=== PATIENT | female | born 2000 | race Caucasian/White ===

== ENCOUNTER 2020-05-30 16:19 | Outpatient (REF) | payer OTHER, SELFPAY | END 2020-05-30 16:20 | disposition home or self-care (01) | LOC: HO.LAB 16:19 | PROVIDERS: Visit Provider Internal Medicine | DX: Z20.822 Contact with and (suspected) exposure to COVID-19 (principal) | CPT/HCPCS: 36415; C9803; U0003; U0005 ==

== ENCOUNTER 2021-02-23 00:43 | Emergency (ER) | payer OTHER, SELFPAY ==
[2021-02-23 00:58] VITALS: BP 145/88; PULSE 61; RESP 16; TEMP 36.6; O2SAT 100; BMI 25.8
--- NOTE | 2021-02-23 01:17 | ED_ITS ---
HPI - Extremity Problem General Chief complaint: Extremity Injury, Upper Stated complaint: Hand pain Time Seen by Provider: 02/23/21 01:07 EST Source: patient Mode of arrival: ambulatory Limitations: no limitations History of Present Illness HPI Narrative: 20-year-old female who presents emergency department for evaluation of a painful lump over her left wrist. She states she noticed at approximately 1 week prior and that the lump has gotten bigger and is more painful. She states that if she moves her wrist the lump is painful or she pushes on the lump that is painful. The patient states she uses her hands a lot drained today for her job. 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 She states that she is also in nursing school and does a lot of online work and uses the computer for multiple hours daily. She denied being ill in any other way such as fever, chills, shortness of breath, having numbness or weakness of her extremities. Related Data Allergies Allergy/AdvReac Type Severity Reaction Status Date / Time Penicillins Allergy Itching Verified 02/23/21 01:22 EDT Review of Systems Review of Systems: Yes all other systems are reviewed and are negative [facility] Past Medical History [facility] Narrative: Past medical history: None. Past surgical history: None. Social history: She denies tobacco, alcohol and drug use. Social History Social History Advance Directives: No Patient : No Physical Exam Vital Signs: Vital Signs: Last Vital Signs Temp 97.8 F 02/23/21 00:58 Pulse 61 02/23/21 00:58 Resp 16 02/23/21 00:58 BP 145/88 H 02/23/21 00:58 Pulse Ox 100 02/23/21 00:58 Body Mass Index 25.8 Const: Other: Awake, alert, female patient, very pleasant cooperative in no distress HENMT: Head: Yes normal to inspection Resp: Effort & Inspection: normal respiratory effort Extrem: Other: The patient has a small, tender, mass over the extensor surface of the wrist consistent with a ganglion cyst. Course Course Course Narrative: 20-year-old female who presents emergency department for evaluation of a painful lump on the extensor surface of the left wrist that started 1 week prior. The patient does use her hands a lie in her job and at school since she is in an online nursing class. The patient has a ganglion cyst. The patient was placed in a Velcro wrist splint and this did improve the pain in her wrist. Patient will be referred to the orthopedic surgeons for further evaluation of possible surgical treatment of this ganglion cyst. Discharge Plan Discharge Clinical Impression: Ganglion cyst Patient Disposition: Home, Self-Care Instructions: Ganglion Cysts (ED) Additional Instructions: The lump on the back of your wrist is called a ganglion cyst. This is a common finding and can sometimes be related to overuse of your hands and wrist. Wear the splint for 2 week to help with the pain. Take ibuprofen 200 mg pills, 3 pills every 6 hours as needed for pain. Take Tylenol (acetaminophen) 500 mg pills, 2 pills every 4 to 6 hours as needed for pain. Sometimes a ganglion cyst needs to be drained and this is done by orthopedic surgeons. Please call our orthopedic surgeon on-call for evaluation within 1-2 weeks. Referrals: Keisha Christian MD [Physician] - 2 weeks
== END 2021-02-23 01:44 | disposition home or self-care (01) ==
PROVIDERS: Emergency Provider Emergency Medicine Emergency Medical Services
DX: M67.432 Ganglion, left wrist (principal); M25.532 Pain in left wrist
CPT/HCPCS: 99283

== ENCOUNTER 2021-03-10 12:29 | Emergency (ER) | payer OTHER, SELFPAY ==
[2021-03-10 14:15] VITALS: BP 119/79; PULSE 75; RESP 16; TEMP 36.9; O2SAT 98; BMI 25.8
--- NOTE | 2021-03-10 14:26 | ED_ITS ---
HPI - General Adult General Chief complaint: General Medical Stated complaint: Nauseous/covid exposure Time Seen by Provider: 03/10/21 14:56 Source: patient Mode of arrival: ambulatory Limitations: no limitations History of Present Illness HPI narrative: 21-year-old female presents to ED for COVID testing. Patient's states nauseous and body aches since yesterday. Patient states she was exposed to a friend who she hanged out with on her birthday the past 2 days and her friend called her and informed her that she is COVID positive. Patient herself is not vaccinated. Patient denies any coughing, chest pain, shortness of breath, recorded fever, abdominal pain, or vomiting. Patient denies any complaints, vaginal discharge, or vaginal bleeding. Related Data Allergies Allergy/AdvReac Type Severity Reaction Status Date / Time Penicillins Allergy Itching Verified 02/23/21 01:22 EDT Review of Systems Review of Systems: Yes all other systems are reviewed and are negative Constitutional: Constitutional: Reports as per HPI, Reports no additional constitutional complaints, Reports body ache(s) and Reports chills Eyes: Eyes: Reports as per HPI and Reports no additional eye complaints ENT: Reports system reviewed and no additional complaints, except as documented and Reports as per HPI Cardiovascular: Cardiovascular: Reports as per HPI and Reports no additional cardiovascular complaints Respiratory: Respiratory: Reports as per HPI and Reports no additional respiratory complaints Gastrointestinal: Gastrointestinal: Reports as per HPI, Reports no additional gastrointestinal complaints, Denies abdominal pain, Denies belching, Denies melena and Reports nausea Genitourinary: Genitourinary: Reports no additional female genitourinary complaints and Reports as per HPI Musculoskeletal: Musculoskeletal: Reports no additional musculoskeletal complaints and Reports as per HPI Neurologic: Reports system reviewed and no additional complaints, except as documented and Reports as per HPI Psychiatric: Psychiatric: Reports no additional psychiatric complaints and Reports as per HPI [facility] Past Medical History Medical History (Updated 03/10/21 @ 15:05 by ROSHNI Odell) No known health problems Social History Social History Advance Directives: No Advance Directives Information Provided: No Patient : No Physical Exam Vital Signs: Vital Signs: Last Vital Signs Temp 98.4 F 03/10/21 14:15 Pulse 75 03/10/21 14:15 Resp 16 03/10/21 14:15 BP 119/79 03/10/21 14:15 Pulse Ox 98 03/10/21 14:15 Body Mass Index 25.8 Const: General: cooperative, healthy appearing, comfortable, no acute distress, well developed, alert, awake and Physically active Orientation/consciousness: patient oriented x3 HENMT: Head: Yes normal to inspection, Yes No palpable skull fracture present, Yes normocephalic, Yes atraumatic and No abrasion Ears: hearing grossly normal bilaterally, external ears normal, TM's normal bilaterally, EAC's normal, mastoids normal and no periauricular adenopathy Throat: Yes posterior oropharynx normal, Yes tonsils normal and Yes uvula midline Eyes: General: appearance normal, both eyes and all related structures Neck: Neck: Yes normal visual inspection, Yes full ROM, Yes no lymphadenopathy, Yes no meningeal signs, Yes trachea midline, Yes supple, No anterior neck swelling and No tender Chest: Chest palpation & inspection: normal inspection of the chest and normal palpation of entire chest wall Resp: Effort & Inspection: normal respiratory effort and able to speak in complete sentences Auscultation: clear to auscultation bilaterally Cardio: Jugular venous distension: no JVD Heart sounds: S1 normal heart sound present and S2 normal heart sound present GI: Inspection: Yes normal to inspection and No abdominal wall ecchymosis Palpation (GI): Soft to palpation, not firm, nontender, no guarding and not rigid : General: No CVA tenderness and Yes no CVA tenderness Back/Spine/Pelvis: Back: no CVA tenderness, No CVA tenderness and No back t enderness Skin: General skin exam: no rashes or lesions noted and elasticity normal Neuro: General: patient oriented x3, gait normal, no meningeal signs and CN's II-XI intact bilaterally Cranial nerves: Yes CN's II-XII intact bilaterally Extrem: General: Yes normal to inspection and Yes full ROM Psych: Appearance: grossly normal, well kempt and not disheveled Course Course Course Narrative: Patient tested for COVID. Patient was informed for her to give us urine to make sure she is not due to patient stating nausea although with body aches and chills very unlikely, but patient admantly states she is not and does not need to give urine. Patient states she has control implant in arms and would not get . Reevaluation(s) Reevaluation #1: COVID swab negative. Patient informed this may be a false negative due to her recently being exposed with symptoms and she might have a low viral load to test positive. Patient informed she should be retested a 72 h ours repeat testing if symptoms worsen. Time: 15:01 Medical Decision Making MDM Narrative Medical decision making narrative: Viral Syndrome Lab Data Labs: Lab Results 03/10/21 Range/Units 14:01 COVID-19 ([facility]) Negative (Negative) COVID-19 Clin Com See Note Discharge Plan Discharge Clinical Impression: Viral syndrome Patient Disposition: Home, Self-Care Instructions: Viral Syndrome (ED) Additional Instructions: Your COVID test came back negative. This may be a false negative due to you have recently being exposed to a COVID positive patient and your symptoms starting yesterday. I would recommend retesting 72 hours if symptoms does not improve. Return to ED immediately for any chest pain, shortness of breath, weakness, dizziness, coughing up blood, diarrhea, abdominal pain, genital urinary complaints, or any other concerning symptoms. Stand Alone Forms: Work/School Release Interventions: ED Discharge Assessment Last Done: 03/10/21 15:17 Discharge Date/Time: 03/10/21 15:18 Print Language: Greenlandic
[2021-03-10 14:27] LABS: COVID-19 Test Negative (Negative); IDNOW Serial# 9DD0AD1C
== END 2021-03-10 15:18 | disposition home or self-care (01) ==
PROVIDERS: Emergency Provider Emergency Medicine; PCP Internal Medicine
DX: B34.9 Viral infection, unspecified (principal); Z20.822 Contact with and (suspected) exposure to COVID-19; M79.10 Myalgia, unspecified site
CPT/HCPCS: 36415; 87635; 99283

== ENCOUNTER 2021-03-13 12:50 | Emergency (ER) | payer OTHER, SELFPAY ==
[2021-03-13 13:10] VITALS: BP 124/78; PULSE 90; RESP 18; TEMP 36.9; O2SAT 97; BMI 26.1
--- NOTE | 2021-03-13 13:14 | ED.URI ---
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) Associated symptoms: myalgias and sore throat Treatments prior to arrival: none Related Data Previous Rx's Medication Instructions Recorded ondansetron 4 mg disintegrating 4 mg PO Q8H PRN #20 tab 03/13/21 tablet Allergies Allergy/AdvReac Type Severity Reaction Status Date / Time Penicillins Allergy Itching Verified 02/23/21 01:22 EDT Review of Systems Review of Systems: Constitutional : no Fever, no Chills, no fatigue, positive Malaise ENT/Mouth : positive sore throat, positive runny nose Eyes: No Discharge Cardiovascular : No Chest Pain, No SOB Respiratory : No Cough, No Sputum Gastrointestinal : No Nausea, No Vomiting, No Diarrhea Genitourinary : No Dysuria, No Urinary Frequency Musculoskeletal : positive Myalgia Skin : No rash Neuro : No Headache PMFSH Past Medical History Attestation statement: The following information was validated with the patient. Medical History No known health problems Social History Social History (Updated 03/13/21 @ 13:15 by Rianna Lopez DO) Patient Tobacco Use Status: Never used Tobacco Advance Directives: No Advance Directives Information Provided: No Patient : No Physical Exam Vital Signs: Vital Signs: Last Vital Signs Temp 98.4 F 03/13/21 13:10 Pulse 90 03/13/21 13:10 Resp 18 03/13/21 13:10 BP 124/78 03/13/21 13:10 Pulse Ox 97 03/13/21 13:10 Body Mass Index 26.1 Appearance: Alert. Oriented X3. No acute distress. Eyes: Pupils equal, round and reactive to light. ENT: Pharynx mild generalized redness mild swelling normal voice tolerating secretions normal TMs Neck: Normal inspection. Neck supple. CVS: Normal heart rate and rhythm. Pulses normal. Respiratory: No respiratory distress. Breath sounds normal. Abdomen: Soft and non-tender. Skin: Skin warm and dry. Normal skin color. Extremities: No lower extremity edema. Neuro: Oriented X 3. No motor deficit. No sensory deficit. MDM - URI/Sore Throat MDM Narrative Medical decision making narrative: 21 yo female with no sig PMH here with body aches sore throat neg COVID test on 03/10 here for repeat testing - will need COVID/strep and UA - dispo per results and findings she is not toxic Lab Data Labs: Lab Results 03/13/21 03/13/21 03/13/21 Range/Units 13:22 13:22 13:23 Urine Color YELLOW Urine Appearance HAZY Urine pH 7.5 (5.0-8.0) Ur Specific [place] 1.020 (1.005-1.025) Urine Protein NEG (NEG-TRACE) MG/DL Urine Glucose (UA) NEG (NEG) MG/DL Urine Ketones NEG (NEG) MG/DL Urine Blood NEG (NEG) Urine Nitrite NEG (NEG) Ur Leukocyte Esterase NEG (NEG) Urine Test NEGATIVE (NEGATIVE) COVID-19 ([facility]) (Negative) COVID-19 Clin Com S. pyogenes GrpA KATLYN Negative (Negative) 03/13/21 Range/Units 13:24 Urine Color Urine Appearance Urine pH (5.0-8.0) Ur Specific [place] (1.005-1.025) Urine Protein (NEG-TRACE) MG/DL Urine Glucose (UA) (NEG) MG/DL Urine Ketones (NEG) MG/DL Urine Blood (NEG) Urine Nitrite (NEG) Ur Leukocyte Esterase (NEG) Urine Test (NEGATIVE) COVID-19 (ESTHELA) Negative (Negative) COVID-19 Clin Com See Note S. pyogenes GrpA KATLYN (Negative) Discharge Plan Discharge Clinical Impression: Acute viral syndrome Patient Disposition: Home, Self-Care Instructions: Viral Syndrome (ED) Additional Instructions: return to ED for any worsening symptoms or concerns COVID and strep are negative negative Prescriptions: New ondansetron 4 mg tablet,disintegrating 4 mg PO Q8H PRN (Reason: nausea and vomiting) Qty: 20 RF: 0 Stand Alone Forms: Work/School Release
[2021-03-13 13:44] LABS: Appearance Urine HAZY; Color Urine YELLOW; Glucose Urine UA NEG (NEG); Leukocyte Esterase Urine NEG (NEG); Nitrite Urine NEG (NEG); PH 7.5 (5.0-8.0); Urine Blood NEG (NEG); Urine Ketones NEG (NEG); Urine Protein NEG (NEG-TRACE)
[2021-03-13 13:45] LABS: UPreg QC Valid YES; Urine Pregnancy NEGATIVE (NEGATIVE)
[2021-03-13 13:50] LABS: IDNOW Serial# 9DD0AD1C
[2021-03-13 13:51] LABS: Strep A Nucleic Acid Negative (Negative)
[2021-03-13 13:55] LABS: COVID-19 Test Negative (Negative)
== END 2021-03-13 14:29 | disposition home or self-care (01) ==
PROVIDERS: Emergency Provider Emergency Medicine; PCP Internal Medicine
DX: B34.9 Viral infection, unspecified (principal); M79.10 Myalgia, unspecified site; Z20.822 Contact with and (suspected) exposure to COVID-19; Z79.899 Other long term (current) drug therapy
CPT/HCPCS: 36415; 81003; 81025; 87635; 87651; 99283

== ENCOUNTER 2023-02-01 13:06 | Outpatient (AMB) | payer BC, OTHER, SELFPAY ==
--- OUTSIDE RECORDS SUMMARY | 2023-02-01 13:07 | XMS_ITS | Continuity of Care Document ---
Author Name Unknown Organization [facility] ter Address [address] [place] [id number]- Care Team Providers Care Paper Tube Cutter Name Role Phone Not on Staff, PCP Primary Care Physician Unavail able Encounter [facility] Date(s): 01/23/20 - 01/23/[address] [id number]- [facility] Discharge Disposition: A-D/C Home Attending Physician: Hoang Carter MD Admitting Physician: Hoang Carter MD Referring Physician: Not on Staff, Referring MD Allergies, Adverse Reactions, Alerts Substance Reaction Severity Status amoxicillin Active penicillins Active Medications Cipro 500 mg oral tablet 1 tablet = 500 mg, By Mouth, Every 12 hours, # 12 tablet, 0 Refills, Maintenance, 10/17/14 15:17:02, Tablet Start Date: 10/17/14 Stop Date: 10/23/14 Status: Ordered clindamycin 300 mg oral capsule 1 capsule = 300 mg, By Mouth, 3 times a day, may sprinkle contents of capsule onto food, # 18 capsule, 0 Refills, Maintenance, 10/17/14 15:16:25 Start Date: 10/17/14 Stop Date: 10/23/14 Status: Ordered Dilaudid 4 mg oral tablet 1 tablet = 4 mg, By Mouth, Every 4 hours, PRN for pain, # 18 tablet, 0 Refills, Maintenance, 10/17/14 15:18:11, Tablet Start Date: 10/17/14 Stop Date: 10/20/14 Status: Ordered Foam Wrist splint Foam Wrist splint, See Instructions, # 1 each, Refills 0, Tot. Refills 0, Maintenance, left arm, 10/10/14 15:14:08, Compound Start Date: 10/10/14 Status: Ordered ibuprofen 400 mg oral tablet 1 tablet = 400 mg, By Mouth, Every 6 hours, PRN for pain, with food or milk, # 60 tablet, 0 Refills, Maintenance, 10/15/14 16:33:38, Tablet Start Date: 10/15/14 Status: Ordered ibuprofen 600 mg oral tablet 600 mg, 1, tablet, By Mouth, Every 6 hours, PRN, # 25 tablet, Refills 0, Tot. Refills 0, Maintenance, as needed for pain, 11/11/15 17:34:49, Print Requisition Start Date: 11/11/15 Status: Ordered Tylenol Extra Strength 500 mg oral tablet 1 tablet = 500 mg, By Mouth, Every 6 hours, PRN for pain, not to exceed 3000 mg/day, # 60 tablet, 0Refills, Maintenance, 10/15/14 16:32:56, Tablet Start Date: 10/15/14 Status: Ordered Vital Signs Most recent to oldest [Reference Range]: 1 2 3 Height 168 cm (01/23/20 5:42 PM) 168 cm (01/23/20 3:42 PM) Oxygen Saturation [94-100 %] 100 % (01/23/20 5:42 PM) 100 % (01/23/20 2:47 PM) 99 % (01/23/20 2:33 PM) Pulse Rate [55-90 bpm] 90 bpm (01/23/20 5:42 PM) 100 bpm *H* (01/23/20 2:47 PM) 78 bpm (01/23/20 2:33 PM) Blood Pressure [90-138/55-84 mm Hg] 133/96mm Hg (01/23/20 5:42 PM) 141/88mm Hg *H* (01/23/20 2:47 PM) Respiratory Rate [16-30 br/min] 20 br/min (01/23/20 5:42 PM) 18 br/min (01/23/20 2:47 PM) Temperature [96.8-100.4 DegF] 98.5 DegF (01/23/20 5:42 PM) 98.7 DegF (01/23/20 2:47 PM) Mode of Delivery (Oxygen) Room air (01/23/20 5:42 PM) Room air (01/23/20 2:47 PM) Room air (10/6/20 2:33 PM) Blood pressure sites Arm, right (01/23/20 5:42 PM) Arm, right (01/23/20 2:47 PM) Temperature Route Oral (01/23/20 5:42 PM) Oral (01/23/20 2:47 PM) Social History Social History Type Response Smoking Status Never smoker entered on: 10/13/14 Sex
--- OUTSIDE RECORDS SUMMARY | 2023-02-01 13:07 | XMS_ITS | Continuity of Care Document ---
Author Name Unknown Organization [facility] Address Unknown Care Team Providers Care Trimming Inspector Name Role Phone Lexa VILLAFUERTE, Lucille Salvador Primary Care Physician Encounter [facility] [place] R [id number] Date(s): 06/19/21 - 07/19/21 [facility] Attending Physician: Helen Hurst Admitting Physician: Helen Hurst Referring Physician: Helen Hurst Allergies, Adverse Reactions, Alerts Substance Reaction Severity [...] Date: 10/17/14 Stop Date: 10/23/14 Status: Ordered cyclobenzaprine 10 mg oral tablet See Instructions, Take 1 tab at night 10-12 hrs before intended AM wake time. If grogginess persists, take earlier in evening or cut pill in half., # 90 tablet, Refills 1, Tot. Refills 1, Maintenance, 06/19/21 16:40:00 EST, Instructions Replace Requir... Start Date: 06/19/21 Status: Ordered Dilaudid 4 mg oral tablet 1 tablet = 4 mg, By Mouth, Every 4 hours, PRN for pain, # 18 tablet, 0 Refills, Maintenance, 10/17/14 15:18:11, Tablet Start Date: 10/17/14 Stop Date: 10/20/14 Status: Ordered Flovent 110 mcg Inhaler HFA Refills 0, Maintenance, 01/25/20 16:09:00 EDT Start Date: 01/25/20 Status: Ordered Foam Wrist splint Foam Wrist [...] Print Requisition Start Date: 11/11/15 Status: Ordered PrednisoLONE By Mouth, Daily, UNKNOWN DOSING, 0 Refills, Maintenance, 01/25/20 16:09:00 EDT Start Date: 01/25/20 Status: Ordered Tylenol Extra Strength 500 mg oral tablet 1 tablet = 500 mg, By Mouth, Every 6 hours, PRN for pain, not to exceed 3000 mg/day, # 60 tablet, 0Refills, Maintenance, 10/15/14 16:32:56, Tablet Start Date: 10/15/14 Status: Ordered Problem List Condition Effective Dates Status Health Status Inform ant Concussion(Confirmed) Active Social History Social History Type Response Smoking Status Never smoker entered on: 10/13/14 Sex
--- OUTSIDE RECORDS SUMMARY | 2023-02-01 13:07 | XMS_ITS | Continuity of Care Document ---
Author Name Unknown Organization [facility] Address Unknown Care Team Providers Care Photostat Operator Name Role Phone Lexa VILLAFUERTE, Lucille Salvador Primary Care Physician [phone] Encounter [facility] [place] Date(s): 12/27/20 - 01/30/21 [facility] Attending Physician: Sandee Markham MD Admitting Physician: Sandee Markham MD Referring Physician: Sandee Markham MD Allergies, Adverse Reactions, Alerts Substance Reaction [...] Print Requisition Start Date: 11/11/15 Status: Ordered Pamelor 25 mg oral capsule 25 mg, 1, capsule, By Mouth, 2 times a day, # 60 capsule, Refills 3, Tot. Refills 3, Maintenance, 01/25/20 16:48:00 EDT, Route to Pharmacy Electronically, [facility]/pharmacy #[id number], 169, cm, 01/25/20 16:08:00 EDT, Height, 72.1, kg, 01/23/20 22:35:00 EDT, Dry... Start Date: 01/25/20 Status: Ordered PrednisoLONE By Mouth, Daily, UNKNOWN [...]
--- OUTSIDE RECORDS SUMMARY | 2023-02-01 13:07 | XMS_ITS | Continuity of Care Document ---
Author Name Unknown Organization [facility] Address [address] [facility], [address] Floor, [address] [place] [address]- Care Team Providers Care Hide Handler Name Role Phone Not on Staff, PCP Primary Care Physician Unavail able [place] [facility] [place] - [place]12/22 [facility] [address], [address], [address] [place] [address]- Allergies, Adverse Reactions, Alerts Substance Reaction Severity [...] Date: 10/15/14 Status: Ordered Problem List Condition Confirmation Course Effective Dates Status Health St atus Informant Concussion Confirmed Active Social History Social History Type Response Smoking Status Never smoker entered on: 10/13/14 Sex Patient Care team information Care Team Personnel Name: Not on Staff, PCP Position: S Physician (General Medicine) Member Role: PCP Care Team Related Persons Name: FABRICE ALEX Address: [address] [place] [address] Name: JENELLE FORREST Address: home [address] [place] [id number]
--- OUTSIDE RECORDS SUMMARY | 2023-02-01 13:07 | XMS_ITS | Continuity of Care Document ---
Author Name Unknown Organization [facility] Address [address] [place] [address]- Care Team Providers Care Director Of Analytics Name Role Phone Not on Staff, PCP Primary Care Physician Unavail able [place] [facility] [place] - 09/20/[address] [address]- Attending Physician: Helen Hurst Admitting Physician: AdmtrHelen Referring Physician: AdmtrHelen Allergies, Adverse Reactions, Alerts Substance Reaction Severity [...] List Condition Confirmation Course Effective Dates Status [facility] Informant Concussion Confirmed Active Social History Social History Type Response Smoking Status Never smoker entered on: 10/13/14 Sex Patient Care team information Care Team Personnel Name: Not on Staff, PCP Position: [facility] Physician (General Medicine) Member Role: PCP Care Team Related Persons Name: FABRICE ALEX Address: home [address] [place] [address] Name: JENELLE FORREST Address: home [address] [place] [id number]
--- OUTSIDE RECORDS SUMMARY | 2023-02-01 13:07 | XMS_ITS | Continuity of Care Document ---
Author Name Unknown Organization [facility] Address [address] [facility], [address] Floor, [address] [place] [id number]- Care Team Providers Care Packaging Mechanic Name Role Phone Lexa VILLAFUERTE, Lucille Salvador Primary Care Physician [place] [facility] [place]01/22 - 01/31/22 [facility] [address], [address], [address] [place] [address]- Attending Physician: Helen Hurst Admitting Physician: Helen Hurst Referring Physician: AdmtrHelen Allergies, Adverse Reactions, Alerts [...] on: 10/13/14 Sex Patient Care team information Personnel Name: Lexa VILLAFUERTE, Lucille Salvador Address: Address: [address] [place] [address] [place], [place] [address]
--- OUTSIDE RECORDS SUMMARY | 2023-02-01 13:08 | XMS_ITS | Continuity of Care Document ---
Author Name Unknown Organization [facility] Address Unknown Care Team Providers Care Public Address Servicer Name Role Phone Lexa VILLAFUERTE, Lucille Salvador Primary Care Physician Encounter [facility] [place] Date(s): 03/20/21 - 05/22/21 [facility] Attending Physician: Paty Vernon Admitting Physician: Paty Vernon Allergies, Adverse Reactions, Alerts Substance Reaction Severity [...] evening or cut pill in half., # 30 tablet, Refills 0, Tot. Refills 0, Maintenance, 04/29/21 15:09:00 EST, Instructions Replace Requir... Start Date: 04/29/21 Status: Ordered Dilaudid 4 mg oral tablet [...] 01/25/20 16:48:00 EDT, Route to Pharmacy Electronically, [facility]/pharmacy #[id number], 169, cm, 01/25/20 16:08:00 [...]
--- OUTSIDE RECORDS SUMMARY | 2023-02-01 13:08 | XMS_ITS | Continuity of Care Document ---
Author Name Unknown Organization [facility] Address [address] [facility], [address] Floor, [address] [place] [phone]- Care Team Providers Care Entry Level Accountant Name Role Phone Not on Staff, PCP Primary Care Physician Unavail able Encounter [facility] [place] Date(s): 07/17/22 - 10/01/22 [facility] [address], [address], [address] [place] [id number]- Attending Physician: Tiffanie Sargent NP Admitting Physician: Tiffanie Sargent NP Allergies, Adverse Reactions, Alerts Substance Reaction Severity [...] ALEX Address: home [address] [place] [address] Name: JENELLE FORREST Address: home [address] [place] [address]
--- OUTSIDE RECORDS SUMMARY | 2023-02-01 13:08 | XMS_ITS | Continuity of Care Document ---
Author Name Unknown Organization [facility] Address Unknown Care Team Providers Care Fiber Picker Name Role Phone Lexa VILLAFUERTE, Lucille Salvador Primary Care Physician [phone] [place] [facility] [place] 12/27/20 - 01/26/21 [facility] Allergies, Adverse Reactions, Alerts Substance Reaction Severity [...] 01/25/20 16:48:00 EDT, Route to Pharmacy Electronically, [facility]/pharmacy #[id number], 169, cm, 01/25/20 16:08:00 EDT, Height, [...]
--- OUTSIDE RECORDS SUMMARY | 2023-02-01 13:08 | XMS_ITS | Continuity of Care Document ---
Author Name Unknown Organization [facility] Address [address] [facility], [address]r d Floor, [address] [place] [phone]- Care Team Providers Care Truck Service Technician Name Role Phone Not on Staff, PCP Primary Care Physician Unavail able [place] [facility] [place] - 10/01/22 [facility] [address], [address] Floor, [address] [place] [address]- Attending Physician: Helen Hurst Admitting Physician: Helen Hurst Referring Physician: Admtr ArMatthew Allergies, Adverse Reactions, Alerts Substance Reaction Severity [...] Persons Name: FABRICE ALEX Address: home [address] [place] [place] [address] Name: JENELLE FORREST Address: home [address] [place] [address]
--- OUTSIDE RECORDS SUMMARY | 2023-02-01 13:08 | XMS_ITS | Continuity of Care Document ---
Author Name Unknown Organization [facility] Address [address] [facility], 3[address] d Floor, [address] [place] [phone]- Care Team Providers Care Corporate Paralegal Name Role Phone Lucille Lindquist MD Primary Care Physician [place] [facility] [place]): 12[place]01/21 - 01/31/22 [facility] [address], [address] Floor, [address] [place] [address]- Attending Physician: Paty Vernon Admitting Physician: Paty Vernon Referring Physician: Lucille Lindquist MD Allergies, Adverse Reactions, Alerts Substance Reaction [...] Name: Lexa VILLAFUERTE, Lucille Salvador Address: Address: [address] [facility] [place], [place] [address]
--- OUTSIDE RECORDS SUMMARY | 2023-02-01 13:08 | XMS_ITS | Continuity of Care Document ---
Author Name Unknown Organization [facility] Address Unknown Care Team Providers Care Dock Operations Supervisor Name Role Phone Lexa VILLAFUERTE, Lucille Salvador Primary Care Physician [phone] Encounter [facility] [place] Date(s): 03/07/21 - 04/06/21 [facility] Allergies, Adverse Reactions, Alerts Substance [...] pill in half., # 30 tablet, Refills 1, Tot. Refills 1, Maintenance, 02/24/21 11:29:00 EST, Instructions Replace Requir... Start Date: 02/24/21 Status: Ordered Dilaudid 4 mg oral tablet [...] 01/25/20 16:48:00 EDT, Route to Pharmacy Electronically, [facility]/pharmacy #[id number], 169, cm, 01/25/20 16:08:00 EDT, [...]
--- OUTSIDE RECORDS SUMMARY | 2023-02-01 13:08 | XMS_ITS | Continuity of Care Document ---
Author Name Unknown Organization [facility] Address [address] [place] [phone]- Care Team Providers Care Construction Craft Laborer Name Role Phone Not on Staff, PCP Primary Care Physician Unavail able [place] [facility] [place](s[place] 08/07/22 - 10/12/[address] [address] Encounter Diagnosis Occipital neuralgia(Final) - Discharge Disposition: A-D/C Home Attending Physician: Tiffanie Sargent NP Admitting Physician: Tiffanie Sargent NP Referring Physician: Tiffanie Sargent NP Allergies, Adverse Reactions, [...] Persons Name: FABRICE ALEX Address: home [address] [place] [address] Name: JENELLE FORREST Address: home [address] [place] [id number]
--- OUTSIDE RECORDS SUMMARY | 2023-02-01 13:08 | XMS_ITS | Continuity of Care Document ---
Author Name Unknown Organization [facility] Address Unknown Care Team Providers Care Director Of Placement Name Role Phone Lexa VILLAFUERTE, Lucille Salvador Primary Care Physician [phone] [place] [facility] [id number] Date(s): 04/21/21 - 06/20/21 [facility] Attending Physician: Paty Vernon Admitting Physician: [...]
--- OUTSIDE RECORDS SUMMARY | 2023-02-01 13:08 | XMS_ITS | Continuity of Care Document ---
Author Name Unknown Organization [facility] Address Unknown Care Team Providers Care Toxics Program Officer Name Role Phone Lucille Lindquist MD Primary Care Physician En[place] [facility] [place] Date(s): 04/17/21 - 05/22/21 [facility] Attending Physician: Paty Vernon Admitting [...] 01/25/20 16:48:00 EDT, Route to Pharmacy Electronically, [facility]/pharmacy #[id number], 169, cm, 01/25/20 16:08:00 [...]
--- NOTE | 2023-02-01 14:21 | AM.OFFWIN_ITS ---
Intake Vital Signs 02/01/23 14:26 Height 5 ft 6 in Weight 140 lb BMI 22.6 BP 120/72 Blood Pressure Location Lt brachial Position Sitting Pulse 85 Pulse Source Pulse Oximeter Pulse Oximetry (%) 95 Oxygen Delivery Method Room Air Intake Visit Reasons: EP Vomitting/Diarrhea/AB [id number] Intake Note: pt is here today for vomitting,diarrhea/AB pain Patient Tobacco Use Status: Never used Tobacco Allergies Penicillins Allergy (Verified 02/01/23 14:45) Itching Medication List - Last Reconciled 02/01/23 by Daniel Katz MD omeprazole 20 mg PO DAILY Do you need a note to return to daycare/school/sports/work: Yes HPI EP Vomitting/Diarrhea/AB [id number] HPI Details 22-year-old female presents to [facility] for a sick visit. Patient is complaining of diarrhea for the past 3 days. Occasional abdominal cramps. 3-4 bowel movements a day. Been no symptoms at night. No fevers or chills. No vomiting. ON LICENSE OF [facility] Medical History No known health problems Social History Patient Tobacco Use Status: Never used Tobacco Physical Exam Vital Signs: Last Vital Signs Pulse 85 02/01/23 14:26 BP 120/72 02/01/23 14:26 Pulse Ox 95 02/01/23 14:26 Oxygen Delivery Method Room Air 02/01/23 14:26 BMI result Body Mass Index 22.6 Const General: cooperative and healthy appearing Nutritional Appearance: well nourished Orientation/consciousness: patient oriented x3 Limitations: no limitations HEENT Head: Yes normal to inspection Eyes General: appearance normal, both eyes and all related structures Neck Neck: Yes normal visual inspection Chest Chest palpation & inspection: normal palpation of entire chest wall Resp Effort & Inspection: normal respiratory effort Neuro General: patient oriented x3 Assessment & Plan Assessment & Plan (1) Gastroenteritis: Code(s): K52.9 - Noninfective gastroenteritis and colitis, unspecified Plan: Most likely viral etiology. Self-limiting illness. If symptoms do not improve to follow-up here. Medications: New omeprazole 20 mg PO DAILY 14 caps 0RF Coding Level of Care Code Est Pt Level 3 (76326) Diagnoses Gastroenteritis K52.9
[2023-02-01 14:26] VITALS: BP 120/72; PULSE 85; O2SAT 95; BMI 22.6
== END 2023-02-01 14:52 | disposition home or self-care (01) ==
PROVIDERS: PCP Internal Medicine; Visit Provider Internal Medicine
DX: K52.9 Noninfective gastroenteritis and colitis, unspecified (principal)
CPT/HCPCS: 99213

== ENCOUNTER 2023-05-30 18:34 | Emergency (ER) | payer OTHER, SELFPAY ==
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
[2023-05-30 18:35] VITALS: BP 123/92; PULSE 75; RESP 16; TEMP 36.4; O2SAT 98; BMI 23.1
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
[2023-05-30 21:14] LABS: Appearance Urine Cloudy; Color Urine Yellow; Glucose Urine UA Negative (Negative); Leukocyte Esterase Urine Small (1+) (Negative); Nitrite Urine Negative (Negative); Specific Gravity - Urine 1.025 (1.005-1.025); UMIC TRIGGER UACC YES; Urine Blood Negative (Negative); Urine Ketones Negative (Negative); Urine Protein Trace mg/dL (Neg-Trace)
[2023-05-30 21:16] LABS: UPreg QC Valid YES; Urine Pregnancy NEGATIVE (NEGATIVE)
[2023-05-30 21:18] LABS: MANUAL DIFF FLAG NO
[2023-05-30 21:19] LABS: Bacteria Urine 4+ (None Seen); Hyaline Casts Urine 0-2 /LPF (0-2); RBC Urine 0-2 /HPF (0-2); UACC Culture Trigger YES; WBC Urine 21-50 /HPF (0-5)
[2023-05-30 21:20] LABS: Basophils Percent Auto 0.4 % (0-2); Eosinophils Absolute Auto 0.1 X10*3/uL (0.0-0.4); Eosinophils Percent Auto 1.3 % (0-4); Hemoglobin 13.2 g/dl (12.0-16.0); Imm Gran Abs Auto 0.02 X10*3/uL (0.00-0.03); Imm Gran Pct Auto 0.3 % (0.0-0.4); Lymphocytes Percent Auto 42.2 % (20-40); Mean Corpuscular HGB Conc 32.2 g/dl (31.0-35.0); Mean Corpuscular Hemoglobin 28.2 pg (27.0-33.0); Mean Corpuscular Volume 87.6 fL (80.0-98.0); Mean Platelet Volume 9.2 fL (9.4-12.3); Monocytes Absolute Auto 0.7 X10*3/uL (0.1-1.2); Monocytes Percent Auto 9.1 % (2-11); Neutrophils Absolute Auto 3.4 x10*3/uL (2.0-8.3); Neutrophils Percent Auto 46.7 % (45-73); Platelet Count 227 X10*3/uL (160-400); Red Blood Count 4.68 X10*6/uL (4.20-5.50); White Blood Count 7.2 X10*3/uL (4.8-10.8)
[2023-05-30 21:27] VITALS: BP 107/64; PULSE 53; RESP 16; TEMP 36.9; O2SAT 97
[2023-05-30 21:34] LABS: Anion Gap 14 (12-20); Blood Urea Nitrogen 12 mg/dL (9-16); Calcium 9.7 mg/dL (8.4-10.2); Carbon Dioxide 26 mmol/L (22-29); Chloride 108 mmol/L (96-108); Creatinine Clr Calc Pharmacy 97.8; Estimated Glomerular Filt Rate > 60; Glucose Random 88 mg/dL (60-115); Potassium 3.7 mmol/L (3.3-5.1); Sodium 144 mmol/L (135-145)
[2023-05-30] MEDS: Ketorolac Tromethamine 15 MG/ML VIAL IVPUSH (21:49)
[2023-05-30] MEDS: 0.9 % Sodium Chloride 1,000 ML 999 ML IV (21:51)
[2023-05-30] MEDS: iohexoL 350 MG/ML 100 ML INFUS..BTL 85 ML IV (21:55)
[2023-05-30 22:49] VITALS: BP 96/43; PULSE 62; RESP 16; TEMP 36.7; O2SAT 98
== END 2023-05-30 23:13 | disposition home or self-care (01) ==
PROVIDERS: Nurse Practitioner Family; Emergency Provider Emergency Medicine
DX: S16.1XXA Strain of muscle, fascia and tendon at neck level, initial encounter (principal); S60.222A Contusion of left hand, initial encounter; S50.312A Abrasion of left elbow, initial encounter; R10.9 Unspecified abdominal pain; R51.9 Headache, unspecified; R07.89 Other chest pain; V43.52XA Car driver injured in collision with other type car in traffic accident, initial encounter; Y93.9 Activity, unspecified; Y92.410 Unspecified street and highway as the place of occurrence of the external cause; Y99.8 Other external cause status; Z79.899 Other long term (current) drug therapy
CPT/HCPCS: 36415; 70450; 71260; 72125; 73120; 74177; 80048; 81001; 81025; 85025; 87086; 96361; 96375; 99284; J1885; Q9967

== ENCOUNTER 2023-12-03 21:39 | Emergency (ER) | payer OTHER, SELFPAY ==
--- NOTE | ~2023-12-03 | CT_ITS ---
EXAMINATION: CT HEAD WITHOUT CONTRAST CLINICAL INFORMATION: Altered mental status. COMPARISON: None available. TECHNIQUE: Contiguous axial imaging was performed from the skull base to vertex without intravenous administration of contrast. This CT examination was performed using dose optimization techniques as appropriate, variously including the following: *Automated exposure control *Adjustment of mA and/or kV according to patient size (this includes techniques or standardized protocols for targeted exams where dose is matched to indication/reason for exam; i.e. extremities or head) *Use of iterative reconstruction technique DLP: 605 mGy-cm FINDINGS: The lateral, third and fourth ventricles are normally outlined. The cortical sulci and basal cisterns are normally outlined as well. There is no acute territorial defect, hemorrhage or midline shift. The extra-axial spaces are unremarkable. Calvarium/scalp: Intact. Maxillofacial sinuses and mastoids: Clear as visualized CT/CT head/brain wo IV con IMPRESSION: No acute intracranial pathology.
[2023-12-03 21:47] VITALS: BP 119/80; PULSE 89; O2SAT 100
[2023-12-03 22:09] VITALS: BP 136/84; PULSE 100; O2SAT 98; BMI 23.1
[2023-12-03 23:17] LABS: Appearance Urine Clear; Color Urine Yellow; Glucose Urine UA Negative (Negative); Leukocyte Esterase Urine Trace (Negative); Nitrite Urine Negative (Negative); PH 6.5 (5.0-9.0); UMIC TRIGGER UACC YES; Urine Blood Moderate (2+) (Negative); Urine Ketones 15 mg/dL (Negative); Urine Protein Negative (Neg-Trace)
[2023-12-03 23:18] LABS: UPreg QC Valid YES; Urine Pregnancy NEGATIVE (NEGATIVE)
[2023-12-03 23:26] LABS: Amphetamine Screen Urine Not Detected (Not Detect); Barbiturates, Urine Not Detected (Not Detect); Benzodiazepines Screen Urine Not Detected (Not Detect); Buprenorphine Scr Not Detected (Not Detect); Cannabinoid Screen Urine POSITIVE (Not Detect); Cocaine Screen Urine Not Detected (Not Detect); Fentanyl, urine Not Detected (Not Detect); Methadone Screen, Urine Not Detected (Not Detect); Opiate Screen Urine Not Detected (Not Detect); Oxycodone Screen Urine Not Detected (Not Detect); Phencyclidine Screen Urine Not Detected (Not Detect)
[2023-12-03 23:31] LABS: Bacteria Urine None Seen (None Seen); Hyaline Casts Urine 0-2 /LPF (0-2); RBC Urine 0-2 /HPF (0-2); WBC Urine 0-5 /HPF (0-5)
[2023-12-03 23:34] VITALS: BP 140/100; PULSE 91; RESP 14; TEMP 36.3; O2SAT 99
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
--- NOTE | 2023-12-03 23:39 | ECG_ITS ---
Test Reason : SUBSTANCE USE Blood Pressure : / mmHG Vent. Rate : 090 BPM Atrial Rate : 090 BPM P-R Int : 138 ms QRS Dur : 086 ms QT Int : 404 ms P-R-T Axes : 049 020 -20 degrees QTc Int : 494 ms Normal sinus rhythm Possible Left atrial enlargement Nonspecific ST and T wave abnormality Prolonged QT Abnormal ECG No previous ECGs available Referred By: Emma Haas Electronically Signed By:NOEMI GARCÍA
[2023-12-04 01:35] VITALS: BP 133/78; PULSE 89; RESP 18; O2SAT 97
[2023-12-04 01:54] LABS: MANUAL DIFF FLAG NO
[2023-12-04 01:56] LABS: Basophils Percent Auto 0.4 % (0-2); Hemoglobin 12.5 g/dl (12.0-16.0); Imm Gran Abs Auto 0.01 X10*3/uL (0.00-0.03); Imm Gran Pct Auto 0.2 % (0.0-0.4); Lymphocytes Absolute Auto 0.7 X10*3/uL (1.2-4.9); Lymphocytes Percent Auto 15.8 % (20-40); Mean Corpuscular HGB Conc 34.7 g/dl (31.0-35.0); Mean Corpuscular Hemoglobin 30.6 pg (27.0-33.0); Mean Platelet Volume 10.2 fL (9.4-12.3); Monocytes Absolute Auto 0.4 X10*3/uL (0.1-1.2); Monocytes Percent Auto 8.2 % (2-11); Neutrophils Absolute Auto 3.4 x10*3/uL (2.0-8.3); Neutrophils Percent Auto 75.4 % (45-73); Platelet Count 177 X10*3/uL (160-400); Red Blood Count 4.09 X10*6/uL (4.20-5.50); Red Cell Distribution Width 12.3 % (11.0-16.0); White Blood Count 4.5 X10*3/uL (4.8-10.8)
[2023-12-04 02:14] LABS: Alanine Aminotransferase 14 U/L (0-31); Albumin Level 4.2 g/dL (3.5-5.0); Alkaline Phosphatase 40 U/L (39-117); Anion Gap 16 (12-20); Aspartate Amino Transferase 22 U/L (5-31); Bilirubin Total 0.4 mg/dL (0.0-1.0); Blood Urea Nitrogen 8 mg/dL (9-16); Calcium 9.2 mg/dL (8.4-10.2); Carbon Dioxide 19 mmol/L (22-29); Chloride 108 mmol/L (96-108); Creatinine Clr Calc Pharmacy 114.3; Estimated Glomerular Filt Rate > 60; Ethanol < 10 mg/dL; Glucose Random 111 mg/dL (60-115); Potassium 3.6 mmol/L (3.3-5.1); Sodium 139 mmol/L (135-145); Total Protein 6.8 g/dL (6.5-8.0)
--- NOTE | 2023-12-04 03:12 | PC.NURSE ---
Report given to Angelica PETERS. Plan of care ongoing.
--- NOTE | 2023-12-04 03:26 | PC.NURSE ---
patient mildly restless upon arrival to pod, reported CP VS WNL, o2 sat 100. patient requested melatonin, t/w pursuing order.
--- NOTE | 2023-12-04 03:40 | PC.NURSE ---
patient declined medication soon after request. patient had a rude presentation.
[2023-12-04] MEDS: diphenhydrAMINE HCL 50 MG/ML VIAL IM (03:53)
[2023-12-04] MEDS: Haloperidol Lactate 5 MG/ML VIAL IM (03:53)
[2023-12-04] MEDS: LORazepam 2 MG/ML VIAL IM (03:53)
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
--- NOTE | 2023-12-04 06:10 | MHC.EDTECH ---
BELONGINGS IN POD LOCKER #7
[2023-12-04 08:50] VITALS: RESP 14
--- NOTE | 2023-12-04 08:51 | PC.NURSE ---
Assumed care of patient at 0645, patient currently sleeping on couch in common area of the pod, respirations even and unlabored, no apparent distress noted. Continue plan of care for CARE team follow up today
[2023-12-04 10:21] VITALS: BP 125/86; PULSE 79; RESP 16; TEMP 36.3; O2SAT 100
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
[2023-12-04 14:37] VITALS: BP 125/86; PULSE 79; RESP 16; TEMP 36.3; O2SAT 100
== END 2023-12-04 14:38 | disposition home or self-care (01) ==
PROVIDERS: Physician Assistant; Emergency Provider Internal Medicine
DX: F22 Delusional disorders (principal); F23 Brief psychotic disorder; F19.10 Other psychoactive substance abuse, uncomplicated; F41.0 Panic disorder [episodic paroxysmal anxiety]; F12.90 Cannabis use, unspecified, uncomplicated; Z79.899 Other long term (current) drug therapy
CPT/HCPCS: 36415; 70450; 80053; 80307; 81001; 81025; 83735; 85025; 93005; 96372; 99285; J1200; J1630; J2060; S9485